=== PATIENT | male | born 1980 | race Caucasian/White ===

== ENCOUNTER 2020-02-29 15:55 | Emergency (ER) | payer MEDICARE, MEDICAID ==
[2020-02-29] MEDS ORDERED: Lidocaine 2% PF 5 ML VIAL ONE (19:19)
[2020-02-29] MEDS ORDERED: Cephalexin 250 MG CAP ONE (19:19)
[2020-02-29] MEDS ORDERED: Boostrix 0.5 ML (Tdap) VIAL ONE (19:19)
[2020-02-29] MEDS ORDERED: Bacitracin 1 PK ONE (19:19)
== END 2020-02-29 16:51 | disposition home or self-care (01) ==
LOC: BURERS 15:55
DX: S60.351A Superficial foreign body of right thumb, initial encounter (principal); E11.9 Type 2 diabetes mellitus without complications; Z79.4 Long term (current) use of insulin; W45.8XXA Other foreign body or object entering through skin, initial encounter
CPT/HCPCS: 10120; 90715; J2001